=== PATIENT | male | born 1960 | race Caucasian/White ===

== ENCOUNTER → 2017-02-04 | Day surgery (SDC) | payer BC, SELFPAY ==
[~2017-02-04] MED LIST: FLEXERIL10 MG PO
--- NOTE | ~2017-02-04 | OR ---
Unit #: [id number] #: [id number] Patient: GURPREET NICE [id number] [address] [place], [place] [address] [id number] O MR#: [id number] NAME: GURPREET NICE ROOM: Date of Procedure: 02/04/2017 Admission Date: 02/04/2017 Surgeon: Robbin Bruner Jr., M.D. : 1960 Attending Physician: Robbin Bruner Jr., M.D. Primary Care Physician: Thuan Sheikh M.D. OPERATIVE REPORT INDICATION FOR PROCEDURE The patient is a 56-year-old Latin male, who recently presented to the office complaining of a bulge in the right inguinal area. He has had some discomfort related to it and desired repair of it. PREOPERATIVE DIAGNOSIS Right inguinal hernia. POSTOPERATIVE DIAGNOSIS Right inguinal hernia, noting a right direct defect with no evidence of any indirect defect. The defect basically was the entire floor of the inguinal canal. ANESTHESIA General with LMA and 0.5% Marcaine with epinephrine locally as a field block. PROCEDURE PERFORMED Right inguinal hernia repair using extra large plug in the floor of the inguinal canal with patch over the top. DESCRIPTION OF PROCEDURE The patient was positioned in the supine position. After being anesthetized, he was prepped and draped in routine fashion for right inguinal hernia repair. A local field block was performed with 0.5% Marcaine with epinephrine and at this point, a transverse incision approximately 3 to 4 inches in length was made over the right inguinal canal. This was carried down through subcutaneous tissues with vessels being coagulated with Bovie cautery down to the Diane and Camper fascia. The Diane and Camper fascia were incised and opened and the external oblique fascia was opened from the external ring up through and past the internal ring. The cord structures were elevated from the pubic tubercle and freed back to the internal ring. The ilioinguinal nerve was retracted laterally to avoid any damage. Multiple cremasteric fibers were divided with the Bovie cautery and the base of the cord at the anterior medial aspect was checked and there was no evidence of any indirect sac. There was a defect through the triangle of Hesselbach and basically the entire floor of the inguinal canal was thinned out with the attenuated transversalis fascia. The fascia was then scored with a Bovie cautery and an extra large plug was placed in the area of the Hakeem ligament and pubic tubercle region and sutured circumferentially with interrupted 0 Ethibond sutures. A large patch was placed at the area of the internal Unit #: [id number] #: [id number] Patient: GURPREET NICE ring and sutured circumferentially with interrupted 0 Ethibond sutures. The patch was placed over the floor of the inguinal canal and sutured circumferentially as routine with interrupted 0 Ethibond sutures with multiple stitches being used at the pubic tubercle. The ilioinguinal nerve was replaced back beneath the mesh before was sutured in place with no evidence of any entrapment or damage. After this was complete, the wound was irrigated with antibiotic solution, which was also used to presoak the plug and patch. The external oblique fascia was closed over the top of the cord structures and ilioinguinal nerve with a continuous 3-0 Vicryl stitch. Diane and Camper fascia were approximated with interrupted 3-0 Vicryl sutures. Skin edges approximated with stainless-steel skin clips and skin stapling device. Sterile dressings were applied externally. Estimated blood loss less than 30 mL. The patient received less than 1000 mL crystalloid solution during the procedure. Sponges and instrument counts were correct x3. No drains used. No complications. The patient was taken to the recovery room with stable vital signs in satisfactory condition. Dictated by... Robbin Bruner Jr., MRoman MONTE/tigre TD: 02/05/2017 06:02 JOB #: [id number] OPERATIVE REPORT X Robbin Bruner MD X PROCEDURE OPERATIVE NOTE
== END | disposition home or self-care (01) ==
LOC: CSUR 11:17
PROVIDERS: Surgery
PROC: 0YU50JZ Supplement Right Inguinal Region with Synthetic Substitute, Open Approach (ICD-10-PCS; principal; 2017-02-04 13:30)
DX: K40.90 Unilateral inguinal hernia, without obstruction or gangrene, not specified as recurrent (principal); F17.200 Nicotine dependence, unspecified, uncomplicated; Z79.899 Other long term (current) drug therapy; M54.5 Low back pain; E78.5 Hyperlipidemia, unspecified; R82.90 Unspecified abnormal findings in urine; R31.9 Hematuria, unspecified; M25.562 Pain in left knee; Z82.49 Family history of ischemic heart disease and other diseases of the circulatory system
CPT/HCPCS: C1781; J0690; J2250; J2405; J3010

== ENCOUNTER 2017-03-27 23:59 | Emergency (ER) | payer BC, OTHER ==
--- NOTE | ~2017-03-27 | CT2 ---
[facility] A Service of [facility] & [facility] RADIOLOGY TEXT RESULTS PATIENT: GURPREET NICE LOCATION: [facility] : 58 UNIT #: [id number] AGE: [address]: Hans Yuan MD SEX: M ORDER DR: [id number] [facility] [address] [place], [place] [address] [id number] E MR#: [id number] Acc #: [id number] NAME: GURPREET NICE : 1960 SEX: M STUDY DATE/TIME: 03/28/2017 1:32 UNIT: [facility] ROOM: STUDY DESCRIPTION: CT Abd and Pelv W Cont Attending Physician: Hans Yuan M.D. Ordering Physician: Hans Yuan M.D. Primary Care Physician: Thuan Sheikh M.D. MEDICAL IMAGING REPORT This report is preliminary unless electronic signature is present EXAM CT abdomen and pelvis with contrast, 03/28/2017 HISTORY 56-year-old male in the ED complaining of left upper abdomen pain. He states this has been present since surgery 1 month ago (no details available). TECHNIQUE CT examination of the abdomen and pelvis was performed with IV contrast. GI contrast was not ordered. This CT exam was performed with one or more of the following radiation dose reduction techniques: Automatic exposure control, adjustment of mA and/or kV according to patient size, and iterative reconstruction. FINDINGS ABDOMEN FINDINGS: Liver, pancreas and spleen are normal in size and appearance. Nondistended gallbladder. No bile duct dilatation. Both kidneys are negative with no evidence of urinary obstruction. Small bowel and colon are normal in caliber and appearance, as imaged. The appendix is normal. Normal-caliber abdominal aorta. PELVIS FINDINGS: Postop changes recent right inguinal herniorrhaphy surgery. Fluid-filled structure deep to the inguinal ring has a typical postoperative appearance for a PerFix synthetic plug graft (correlate with details of surgery). Bladder, prostate and rectum are within normal limits. Limited lung base images show no active disease in the lower chest. IMPRESSION 1. Postop changes recent right inguinal herniorrhaphy surgery. A well-defined fluid-filled structure deep to the right inguinal ring has a typical postoperative appearance for a PerFix synthetic plug STS. [facility] A Service of [facility] RADIOLOGY TEXT RESULTS PATIENT: GURPREET NICE LOCATION: [facility] : 58 UNIT #: [id number] AGE: [address]: Hans Yuan MD SEX: M ORDER DR: graft. Correlate with the details of surgery. No left inguinal hernia. 2. The remainder of the examination is negative. The appendix is normal. Dictated by... Thomas Donahue M.D. THIS IS AN ELECTRONICALLY VERIFIED REPORT Thomas Donahue M.D. at 03/28/2017 6:01 AM ELVIA/nahum TD: 03/28/2017 02:49 JOB #: [id number] MEDICAL IMAGING REPORT Page 1 of 1 COPY
--- NOTE | ~2017-03-27 | EKG ---
PATIENT: GURPREET NICE UNIT #: [id number] Ventricular Rate: 68 BPM Atrial Rate: 68 BPM P-R Interval: 152 ms QRS Duration: 76 ms Q-T Interval: 400 ms QTC Calculation(Bezet): 425 ms P Squires: 56 degrees Calculated R Squires: 51 degrees Calculated T Squires: 47 degrees Diagnosis Line: Normal sinus rhythm Diagnosis Line: Normal ECG Diagnosis Line: Diagnosis Line: Confirmed by MICHA CEDENO MD ([id number]) on Diagnosis Line: 03/28/2017 11:18:23 PM INTERPRETING MD: ALEC
[2017-03-27 23:48] LABS: BASOPHIL% 0.6 % (0-2.5); EOSINOPHIL# 0.3 X10e3 (0-0.7); EOSINOPHIL% 5.9 % (0.0-7.0); HEMATOCRIT 43.2 % (38.0-50.0); HEMOGLOBIN 14.1 gm/dL (13.0-16.0); LYMPHOCYTE# 1.8 X10e3 (1.0-3.5); LYMPHOCYTE% 33.9 % (17.0-45.0); MEAN CELL VOLUME 87.3 FL (83-96); MEAN CORPUSCULAR HEMOGLOBIN 28.5 PG (28-34); MEAN CORPUSCULAR HGB CONC 32.6 g/dL (30-36); MEAN PLATELET VOLUME 8.1 FL (6.5-11.5); MONOCYTE# 0.7 X10e3 (0-1.0); MONOCYTE% 12.2 % (3.0-12.0); NEUTROPHIL# 2.6 X10e3 (1.5-7.1); NEUTROPHIL% 47.4 % (40-75); PLATELET COUNT 254 X10e3 (140-420); RED BLOOD COUNT 4.95 X10e (3.90-5.60); RED CELL DISTRIBUTION WIDTH 14.4 % (11.0-15.5); WHITE BLOOD COUNT 5.4 X10e3 (4.0-10.5)
[2017-03-27 23:51] LABS: DIFF IND NO
[2017-03-28 00:07] LABS: ALBUMIN SERUM 4.6 g/dL (3.5-5.0); BILIRUBIN, DIRECT 0.1 mg/dL (0.0-0.2); BILIRUBIN,TOTAL 1.1 mg/dL (0.2-2.0); BUN/CREATININE RATIO 18.88; CALCIUM SERUM 9.1 mg/dL (8.4-10.2); CREATININE SERUM 0.9 mg/dL (0.6-1.4); GLOM FILT RATE Estimated 94.5 mL/min (>60); PROTEIN TOTAL SERUM 7.6 g/dL (6.0-8.3)
[2017-03-28 01:43] LABS: POC - CKMB 2.7 ng/mL (0.0-7.9); POC - TROPONIN <0.05 ng/mL (<=0.05)
== END 2017-03-28 03:36 | disposition home or self-care (01) ==
LOC: CED 23:59
PROVIDERS: Emergency Medicine
DX: K29.00 Acute gastritis without bleeding (principal)
CPT/HCPCS: 36415; 74177; 80048; 80076; 82150; 82553; 83690; 84484; 85025; 93005; 96374; 99284; J2270; Q9967

== ENCOUNTER 2017-03-28 12:08 | Emergency (ER) | payer BC, OTHER ==
[2017-03-28 12:37] LABS: BASOPHIL% 0.1 % (0-2.5); EOSINOPHIL% 0.6 % (0.0-7.0); HEMATOCRIT 43.1 % (38.0-50.0); HEMOGLOBIN 14.4 gm/dL (13.0-16.0); LYMPHOCYTE# 0.7 X10e3 (1.0-3.5); LYMPHOCYTE% 14.6 % (17.0-45.0); MEAN CELL VOLUME 87.2 FL (83-96); MEAN CORPUSCULAR HEMOGLOBIN 29.1 PG (28-34); MEAN CORPUSCULAR HGB CONC 33.3 g/dL (30-36); MEAN PLATELET VOLUME 8.3 FL (6.5-11.5); MONOCYTE# 0.4 X10e3 (0-1.0); NEUTROPHIL# 3.9 X10e3 (1.5-7.1); NEUTROPHIL% 77.7 % (40-75); PLATELET COUNT 258 X10e3 (140-420); RED BLOOD COUNT 4.94 X10e (3.90-5.60); RED CELL DISTRIBUTION WIDTH 14.1 % (11.0-15.5)
[2017-03-28 12:38] LABS: DIFF IND NO
[2017-03-28 13:05] LABS: ALBUMIN SERUM 4.6 g/dL (3.5-5.0); BILIRUBIN, DIRECT 0.1 mg/dL (0.0-0.2); BILIRUBIN,TOTAL 1.1 mg/dL (0.2-2.0); BUN/CREATININE RATIO 18.75; CALCIUM SERUM 9.1 mg/dL (8.4-10.2); CREATININE SERUM 0.8 mg/dL (0.6-1.4); GLOM FILT RATE Estimated 99.2 mL/min (>60); POTASSIUM 3.9 mmol/L (3.5-5.1); PROTEIN TOTAL SERUM 7.8 g/dL (6.0-8.3)
== END 2017-03-28 14:00 | disposition home or self-care (01) ==
LOC: CED 12:08
PROVIDERS: Emergency Medicine
DX: R10.12 Left upper quadrant pain (principal); R11.2 Nausea with vomiting, unspecified; Z90.89 Acquired absence of other organs
CPT/HCPCS: 36415; 80048; 80076; 82150; 83690; 85025; 96361; 96374; 96375; 99284; C9113; J2405